=== PATIENT | male | born 1935 | race Caucasian/White ===

== ENCOUNTER 2021-10-28 13:51 | Inpatient (IN) ==
[2021-10-28] MEDS ORDERED: Ondansetron 4 MG/2 ML VIAL IVP PRN (14:53)
[2021-10-28] MEDS ORDERED: Acetaminophen 325 MG TABLET PO PRN (14:53)
[2021-10-28] MEDS ORDERED: Naloxone 0.4 MG/ML INJ IVP PRN (14:53)
[2021-10-28] MEDS ORDERED: predniSONE 5 MG TABLET PO SCH (18:00)
[2021-10-28] MEDS: *HR* HYDROcodone/Acet 5/325 mg TABLET PO PRN (20:01)
[2021-10-28] MEDS: Fluticasone Propionate Nasal 50 MCG/SPRAY BOTTLE NS SCH (20:03)
[2021-10-28] MEDS: Ipratropium/Albuterol Neb 3 ML IH SCH (21:54)
[2021-10-28] MEDS: Budesonide Neb 0.5 MG/2 ML IH SCH (21:55)
[2021-10-28] MEDS: *HR* OxyCODONE Immed Rel 5 MG TABLET PO PRN (23:39)
[2021-10-29 02:24] LABS: Basophils % 0.1 %; Eosinophils # 0.1 K/mcL (0.0-0.6); Eosinophils % 0.9 %; Hematocrit 39.4 % (37.5-50.1); Hemoglobin 13.1 g/dL (12.9-16.9); Immature Granulocytes % 0.4 % (0-4); Lymphocytes # 1.3 K/mcL (0.6-4.6); Lymphocytes % 9.8 %; Mean Corpuscular HGB Conc 33.2 g/dL (31.6-35.5); Mean Corpuscular Hemoglobin 30.4 pg (28.0-33.3); Mean Corpuscular Volume 91.4 fL (83.0-100.0); Mean Platelet Volume 9.2 fL (9.4-12.4); Monocytes % 7.5 %; Platelet Count 297 K/mcL (140-400); Red Blood Count 4.31 M/mcL (4.19-5.50); Red Cell Distribution Width 12.1 % (11.5-14.5); Segmented Neutrophils % 81.3 %; White Blood Count 13.6 K/mcL (4.3-11.1)
[2021-10-29 02:28] LABS: INR 1.1; Prothrombin Time 12.1 Seconds (9.4-12.1)
[2021-10-29 02:44] LABS: Potassium 4.3 mEq/L (3.5-5.1)
[2021-10-29] MEDS: *HR* Enoxaparin 40 MG/0.4 ML SYRINGE SQ SCH ×2 (04:41→08:39)
[2021-10-29] MEDS: Ipratropium/Albuterol Neb 3 ML IH SCH ×4 (04:54→23:03)
[2021-10-29] MEDS: Loratadine 10 MG TABLET PO SCH (08:40)
[2021-10-29] MEDS: predniSONE 10 MG TABLET PO SCH (08:40)
[2021-10-29] MEDS: Fluticasone Propionate Nasal 50 MCG/SPRAY BOTTLE NS SCH ×2 (08:40→19:23)
[2021-10-29] MEDS: *HR* OxyCODONE Immed Rel 5 MG TABLET PO PRN ×2 (11:01→18:11)
[2021-10-29] MEDS: Budesonide Neb 0.5 MG/2 ML IH SCH ×2 (11:19→23:03)
[2021-10-29] MEDS: *HR* HYDROcodone/Acet 5/325 mg TABLET PO PRN (21:06)
[2021-10-30] MEDS: Ipratropium/Albuterol Neb 3 ML IH SCH ×4 (04:17→16:06)
[2021-10-30] MEDS: Loratadine 10 MG TABLET PO SCH (07:25)
[2021-10-30] MEDS: Fluticasone Propionate Nasal 50 MCG/SPRAY BOTTLE NS SCH ×2 (07:49→21:12)
[2021-10-30] MEDS: predniSONE 5 MG TABLET PO SCH (07:50)
[2021-10-30] MEDS: Budesonide Neb 0.5 MG/2 ML IH SCH ×2 (10:24→22:47)
[2021-10-30] MEDS ORDERED: Lidocaine -MPF 2% 5 ML VIAL ONE (12:12)
[2021-10-30] MEDS ORDERED: *HR* Succinylcholine 200 MG/10 ML VIAL IVP ONE (12:12)
[2021-10-30] MEDS ORDERED: Lidocaine HCL 4 ML Topical Solution (Laryng-O-Jet Kit Sterile Pak) TP ONE (12:12)
[2021-10-30] MEDS ORDERED: *HR* FentaNYL (PF) 100 MCG/2 ML VIAL ONE (12:13)
[2021-10-30] MEDS ORDERED: *HR* Propofol 200 MG/20 ML VIAL IVP ONE (12:13)
[2021-10-30] MEDS ORDERED: Ropivacaine/PF 0.5% 30 ML VIAL ONE (12:48)
[2021-10-30] MEDS ORDERED: CeFAZolin Syr 2,000MG/20 ML 2,000 MG/20 ML SYRINGE IVPB ONE (12:49)
[2021-10-30] MEDS ORDERED: Vancomycin 1,000 MG VIAL ONE (13:36)
[2021-10-30] MEDS ORDERED: Ondansetron 4 MG/2 ML VIAL ONE ×2 (14:05→14:06)
[2021-10-30] MEDS ORDERED: Tranexamic Acid 1,000 MG/10 ML VIAL ONE (14:20)
[2021-10-30] MEDS ORDERED: EPHEDrine 50 MG/ML VIAL ONE (14:39)
[2021-10-30] MEDS ORDERED: *HR* Midazolam HCl 2 MG/2 ML VIAL ONE (16:08)
[2021-10-30] MEDS: *HR* Midazolam HCl 2 MG/2 ML VIAL IVP PRN ×2 (16:11→16:17)
[2021-10-30] MEDS ORDERED: Acetaminophen IV 1,000 MG/100 ML BAG IVPB ONE (16:13)
[2021-10-30] MEDS ORDERED: *HR* FentaNYL (PF) 100 MCG/2 ML VIAL IVP ONE (16:39)
[2021-10-30] MEDS ORDERED: *HR* Metoprolol 5 MG/5 ML VIAL IVP PRN (16:40)
[2021-10-30] MEDS ORDERED: *HR* Labetalol 20 MG/4 ML SYRINGE IVP PRN (16:40)
[2021-10-30] MEDS: Ringers Solution, Lactated 1,000 ML IVC SCH (19:28)
[2021-10-30] MEDS: Aspirin 81 MG TAB.CHEW PO SCH (21:11)
[2021-10-30] MEDS: Gabapentin 100 MG CAPSULE PO SCH (21:11)
[2021-10-31] MEDS: *HR* HYDROcodone/Acet 5/325 mg TABLET PO PRN ×2 (01:41→08:04)
[2021-10-31] MEDS: Ipratropium/Albuterol Neb 3 ML IH SCH ×4 (04:31→21:07)
[2021-10-31 05:28] LABS: Basophils % 0.2 %; Hematocrit 38.6 % (37.5-50.1); Hemoglobin 12.8 g/dL (12.9-16.9); Immature Granulocytes % 0.5 % (0-4); Lymphocytes # 1.5 K/mcL (0.6-4.6); Mean Corpuscular HGB Conc 33.2 g/dL (31.6-35.5); Mean Corpuscular Hemoglobin 30.7 pg (28.0-33.3); Mean Corpuscular Volume 92.6 fL (83.0-100.0); Mean Platelet Volume 9.4 fL (9.4-12.4); Monocytes # 1.3 K/mcL (0.0-1.3); Platelet Count 267 K/mcL (140-400); Red Blood Count 4.17 M/mcL (4.19-5.50); Red Cell Distribution Width 12.2 % (11.5-14.5); Segmented Neutrophils % 80.3 %
[2021-10-31 06:57] LABS: BUN/Creatinine Ratio 19 (6-26); Blood Urea Nitrogen 12 mg/dL (8-23); Calcium 9.1 mg/dL (8.6-10.3); Carbon Dioxide 25 mEq/L (23-29); Chloride 102 mEq/L (98-107); Glucose 118 mg/dL (70-105); Magnesium 1.8 mg/dL (1.6-2.6); Osmolality,Calculated 277 (280-300); Potassium 4.4 mEq/L (3.5-5.1); Sodium 133 mEq/L (136-145)
[2021-10-31] MEDS: Gabapentin 100 MG CAPSULE PO SCH ×3 (07:56→21:18)
[2021-10-31] MEDS: Aspirin 81 MG TAB.CHEW PO SCH ×2 (07:56→21:18)
[2021-10-31] MEDS: Loratadine 10 MG TABLET PO SCH (07:56)
[2021-10-31] MEDS: Fluticasone Propionate Nasal 50 MCG/SPRAY BOTTLE NS SCH ×2 (08:01→21:16)
[2021-10-31] MEDS: predniSONE 10 MG TABLET PO SCH (08:04)
[2021-10-31] MEDS: Budesonide Neb 0.5 MG/2 ML IH SCH ×2 (10:25→21:07)
[2021-10-31] MEDS: Ringers Solution, Lactated 1,000 ML IVC SCH (21:00)
[2021-11-01] MEDS: *HR* HYDROcodone/Acet 5/325 mg TABLET PO PRN ×2 (02:51→11:23)
[2021-11-01] MEDS: Ipratropium/Albuterol Neb 3 ML IH SCH ×4 (04:28→19:58)
[2021-11-01 05:02] LABS: BUN/Creatinine Ratio 28 (6-26); Blood Urea Nitrogen 19 mg/dL (8-23); Calcium 8.8 mg/dL (8.6-10.3); Carbon Dioxide 27 mEq/L (23-29); Chloride 101 mEq/L (98-107); Glucose 107 mg/dL (70-105); Magnesium 1.7 mg/dL (1.6-2.6); Osmolality,Calculated 279 (280-300); Sodium 133 mEq/L (136-145)
[2021-11-01 05:17] LABS: Basophils % 0.3 %; Eosinophils # 0.1 K/mcL (0.0-0.6); Eosinophils % 0.6 %; Hematocrit 35.9 % (37.5-50.1); Hemoglobin 11.8 g/dL (12.9-16.9); Immature Granulocytes % 0.3 % (0-4); Lymphocytes # 1.8 K/mcL (0.6-4.6); Lymphocytes % 14.5 %; Mean Corpuscular HGB Conc 32.9 g/dL (31.6-35.5); Mean Corpuscular Hemoglobin 30.6 pg (28.0-33.3); Mean Platelet Volume 9.8 fL (9.4-12.4); Monocytes # 1.5 K/mcL (0.0-1.3); Monocytes % 11.8 %; Neutrophils # 9.1 K/mcL (1.6-8.9); Platelet Count 260 K/mcL (140-400); Red Blood Count 3.86 M/mcL (4.19-5.50); Red Cell Distribution Width 12.3 % (11.5-14.5); Segmented Neutrophils % 72.5 %; White Blood Count 12.6 K/mcL (4.3-11.1)
[2021-11-01] MEDS: Aspirin 81 MG TAB.CHEW PO SCH ×2 (08:20→20:29)
[2021-11-01] MEDS: Gabapentin 100 MG CAPSULE PO SCH ×3 (08:20→20:29)
[2021-11-01] MEDS: Loratadine 10 MG TABLET PO SCH (08:20)
[2021-11-01] MEDS: predniSONE 5 MG TABLET PO SCH (08:20)
[2021-11-01] MEDS: Fluticasone Propionate Nasal 50 MCG/SPRAY BOTTLE NS SCH ×2 (08:22→20:29)
[2021-11-01] MEDS: Budesonide Neb 0.5 MG/2 ML IH SCH ×2 (10:17→19:58)
[2021-11-01] MEDS: Ringers Solution, Lactated 1,000 ML IVC SCH (17:28)
[2021-11-02] MEDS: *HR* HYDROcodone/Acet 5/325 mg TABLET PO PRN ×2 (03:25→19:36)
[2021-11-02] MEDS: Ipratropium/Albuterol Neb 3 ML IH SCH ×4 (03:28→21:36)
[2021-11-02] MEDS: predniSONE 10 MG TABLET PO SCH (09:09)
[2021-11-02] MEDS: Gabapentin 100 MG CAPSULE PO SCH ×3 (09:09→19:38)
[2021-11-02] MEDS: Aspirin 81 MG TAB.CHEW PO SCH ×2 (09:09→19:37)
[2021-11-02] MEDS: Loratadine 10 MG TABLET PO SCH (09:09)
[2021-11-02] MEDS: Fluticasone Propionate Nasal 50 MCG/SPRAY BOTTLE NS SCH ×2 (09:10→19:37)
[2021-11-02] MEDS: Budesonide Neb 0.5 MG/2 ML IH SCH ×2 (11:09→21:36)
[2021-11-02 14:05] LABS: Basophils % 0.4 %; Eosinophils # 0.2 K/mcL (0.0-0.6); Eosinophils % 1.5 %; Hemoglobin 11.3 g/dL (12.9-16.9); Immature Granulocytes % 1.1 % (0-4); Lymphocytes # 0.8 K/mcL (0.6-4.6); Mean Corpuscular HGB Conc 33.2 g/dL (31.6-35.5); Mean Corpuscular Hemoglobin 30.8 pg (28.0-33.3); Mean Corpuscular Volume 92.6 fL (83.0-100.0); Mean Platelet Volume 9.6 fL (9.4-12.4); Monocytes # 1.1 K/mcL (0.0-1.3); Monocytes % 9.2 %; Neutrophils # 9.2 K/mcL (1.6-8.9); Platelet Count 242 K/mcL (140-400); Red Blood Count 3.67 M/mcL (4.19-5.50); Red Cell Distribution Width 12.4 % (11.5-14.5); Segmented Neutrophils % 80.8 %; White Blood Count 11.4 K/mcL (4.3-11.1)
[2021-11-02 14:18] LABS: BUN/Creatinine Ratio 33 (6-26); Blood Urea Nitrogen 22 mg/dL (8-23); Carbon Dioxide 28 mEq/L (23-29); Chloride 101 mEq/L (98-107); Glucose 150 mg/dL (70-105); Magnesium 1.8 mg/dL (1.6-2.6); Osmolality,Calculated 282 (280-300); Potassium 4.2 mEq/L (3.5-5.1); Sodium 133 mEq/L (136-145)
[2021-11-02 14:48] LABS: Influenza A PCR Negative (Negative); Influenza B PCR Negative (Negative); Resp. Syncytial Virus PCR Negative (Negative)
[2021-11-02 14:51] LABS: SARS-CoV-2 by PCR (In House) Negative (Negative)
[2021-11-02 19:35] VITALS: BP 130/74; PULSE 93; TEMP 98.2
[2021-11-02 21:39] VITALS: O2SAT 96
== END 2021-11-02 23:12 | DRG 483 ==
LOC: EMEROOARM 13:51 → 4WAOSI 13:51 → SUATTDRO 15:00 → 4WAOSI 16:06
PROVIDERS: ADMIT Pharmacist; ATTEND Pharmacist